=== PATIENT | female | born 2000 | race Caucasian/White ===

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

== ENCOUNTER 2020-06-23 17:25 | Day surgery (SDC) | payer OTHER ==
[~2020-06-23] VITALS: Ht 175.3 cm; Wt 56.3 kg
[2020-06-23] MEDS ORDERED: SODIUM CHLORIDE 0.9% 1,000ML IVBOLUS ONE (18:00)
[2020-06-23] MEDS ORDERED: SODIUM CHLORIDE FLUSH 10ML SYR IVF ONE (18:00)
--- NOTE | 2020-06-23 18:04 | NUR ---
PT UPRIGHT IN GURNEY, HOLDING ABDOMEN. REPORTS INTERMITTENT PELVIC CRAMPING AND LIGHT VAGINAL BLEEDING X THIS AM. HX OF MISCARRIAGE AND SCHEDULED FOR D&C TOMORROW WITH DR RASHID. LMP: , ULTRASOUND SUNDAY SUGGESTIVE OF MISCARRIAGE AT 9WEEKS GESTATION. . PT PWD, DENIES DIZZINESS/WEAKNESS/N/V.BP/SPO2/ECG MONITORING IN PLACE. NSR ON MONITOR. IV ESTABLISHED AND LABS DRAWN.
[2020-06-23] MEDS ORDERED: MORPHINE SULFATE 4 MG/ML, 1ML ONE ×2 (18:15→19:43)
[2020-06-23] MEDS: MORPHINE SULFATE 4 MG/ML, 1ML IVPush PRN ×2 (18:18→19:46)
--- NOTE | 2020-06-23 18:20 | NUR ---
PT MEDICATED PER EMAR FOR PAIN
[2020-06-23 18:27] LABS: BASOPHILS % (AUTO) 1 % (0-1); EOSINOPHILS % (AUTO) 1 % (1-7); LYMPHOCYTES % (AUTO) 23 % (22-44); MEAN CORPUSCULAR HEMOGLOBIN 30.2 pg (27.0-34.8); MEAN PLATELET VOLUME 7.7 fL (7.4-10.4); MONOCYTES % (AUTO) 6 % (2-9); NEUTROPHILS % (AUTO) 70 % (42-75); PLATELET COUNT 270 x10^3/uL (130-400); RED BLOOD COUNT 5.09 x10^6/uL (3.82-5.3); RED CELL DISTRIBUTION WIDTH 13.4 % (9.6-15.2)
[2020-06-23 18:28] LABS: MD NO
[2020-06-23 18:31] LABS: ALBUMIN 4.4 g/dL (3.4-5.0); ANION GAP 6 mmol/L (5-15); CALCIUM 9.6 mg/dL (8.5-10.1); CHLORIDE 107 mmol/L (98-107); CREATININE 0.68 mg/dL (0.55-1.02)
--- NOTE | 2020-06-23 19:18 | NUR ---
PT RESTING IN GUREL RITO, APPEARS MORE COMFORTABLE, USING CELL PHONE. PT REPORTS THAT "CRAMPS ARE STILL THERE BUT THEY ARE WAY BETTER". AWAITING PELVIC US AND ADMIT TO OR
--- NOTE | 2020-06-23 19:48 | NUR ---
PT MEDICATED PER EMAR FOR CONTINUED PAIN
[2020-06-23 20:35] VITALS: BP 118/70
--- NOTE | 2020-06-23 20:35 | NUR ---
RETURNED FROM US, TEARFUL, REPORTING IMPROVED PAIN W ADDITIONAL MEDICATIONS.
--- NOTE | 2020-06-23 20:59 | NUR ---
REPORT TO [employer] OPERATOR. PT TRANSPORTED WITH OR TECH Addendum: 06/23/20 at 2100 by EDEL MOTHER IN POSSESSION OF BELONGINGS INCLUDING PHONE AND JEWELERY
[2020-06-23] MEDS ORDERED: MISOPROSTOL 200 MCG TABLET ONE (21:01)
[2020-06-23] MEDS ORDERED: METHYLERGONOVINE 0.2 MG/ML IM ONE ×2 (21:02→21:27)
[2020-06-23] MEDS ORDERED: OXYTOCIN 10 UNITS/ML, 1ML ONE (21:02)
[2020-06-23] MEDS ORDERED: SILVER NITRATE STICK TP ONE (21:02)
[2020-06-23] MEDS ORDERED: SUCCINYLCHOLINE 20 MG/ML, 10ML ONE (21:27)
[2020-06-23] MEDS ORDERED: ONDANSETRON 2MG/ML, 2ML ONE (21:27)
[2020-06-23] MEDS ORDERED: CEFAZOLIN 1,000 MG ONE (21:27)
[2020-06-23] MEDS ORDERED: PROPOFOL 10 MG/ML, 20ML ONE (21:27)
[2020-06-23] MEDS ORDERED: DEXAMETHASONE 4 MG/ML, 1ML ONE (21:27)
[2020-06-23] MEDS ORDERED: OXYcodone 5 MG/5 ML ORAL.SOL UDC PO PRN (22:00)
[2020-06-23] MEDS ORDERED: ALBUTEROL SULFATE 2.5 MG/3 ML NPPB PRN (22:00)
[2020-06-23] MEDS ORDERED: hydrALAzine 20 MG/ML, 1ML IV PRN (22:00)
[2020-06-23] MEDS ORDERED: METOCLOPRAMIDE 5 MG/ML, 2ML IV PRN (22:00)
[2020-06-23] MEDS ORDERED: MEPERIDINE/PF 25MG/0.5ML IVPush PRN (22:00)
[2020-06-23] MEDS ORDERED: PROMETHAZINE 25 MG/ML, 1ML IV PRN (22:00)
[2020-06-23] MEDS ORDERED: HYDROmorphone 1 MG/ML, 1ML INJ IV PRN (22:00)
[2020-06-23] MEDS ORDERED: DIAZEPAM 5 MG/ML, 2ML IV PRN ×2 (22:00)
[2020-06-23] MEDS ORDERED: ONDANSETRON 2MG/ML, 2ML IVPush PRN (22:00)
[2020-06-23] MEDS ORDERED: LABETALOL 5MG/ML, 20ML IV PRN (22:00)
[2020-06-23] MEDS ORDERED: KETOROLAC 30 MG/1 ML IV PRN (22:00)
[2020-06-23] MEDS ORDERED: FENTANYL PF 100 MCG/2ML IV PRN (22:00)
[2020-06-23] MEDS ORDERED: MEPERIDINE/PF 25MG/ML,1ML ONE (22:19)
== END 2020-06-23 22:16 | disposition home or self-care (01) ==
LOC: ED 18:26 → OUT 18:27
PROVIDERS: ATTEND Obstetrics & Gynecology
DX: O02.1 Missed abortion (principal); Z88.1 Allergy status to other antibiotic agents; Z20.828 Contact with and (suspected) exposure to other viral communicable diseases
CPT/HCPCS: 36415; 59820; 76830; 80048; 82040; 85025; 86850; 86900; 87635; J0330; J0690; J1100; J2175; J2210; J2250; J2270; J2405; J2704; J3010; J7030; J2590